=== PATIENT | female | born 1940 | race Caucasian/White ===

== ENCOUNTER 2018-04-07 09:52 | Emergency (ER) | payer OTHER ==
[2018-04-07 10:00] VITALS: BP 151/71; TEMP 97.1; BMI 19.4
--- NOTE | 2018-04-07 10:08 | ED.PDOC ---
General ED Provider: Dr. IMELDA BREWSTER Chief Complaint: Non-specific Complaint Stated Complaint: Mouth Sores. Pt complains of sores to lips and mouth, going down throat. States when this happened to her twin sister it was due to methotrexate toxicity. Both take methotrexate for rheumatoid arthritis. Patient was seen by Dr Roblero and was put on cefdinir. Time Seen by Physician: 10:05 Mode of Arrival: Walk-In Information Source: Patient, Family Exam Limitations: No limitations Primary Care Provider: KASH ROBLERO Nursing and Triage Documentation Reviewed and Agree: Yes Does patient meet sepsis criteria?: No System Inflammatory Response Syndrome: Not Applicable Sepsis Protocol: For patient's 13 years and over: Temp is 96.8 and below OR 101 and greater Pulse >90 BPM Resp >20/minute Acutely Altered Mental Status Are patient's symptoms suggestive of a new infection, such as: -Pneumonia -Skin, Soft Tissue -Endocarditis -UTI -Bone, Joint Infection -Implantable Device -Acute Abdominal Infection -Wound Infection -Meningitis -Blood Stream Catheter Infection -Unknown EENT Complaint Exam - Throat Complaint/Exam Onset/Duration: 48 hrs Symptoms Are: Still present Timimg: Constant Initial Severity: Moderate Current Severity: Moderate Aggravating: Reports: Eating Alleviating: Reports: None Associated Signs and Symptoms: Reports: Dysphagia, Foreign body sensation. Denies: Fever, Drooling, Chills, Cough, Wheezing, Hoarseness, Sinus discomfort, Nasal congestion, Difficulty breathing, Lethargy, Irritability, Decreased activity, Vomiting, Diarrhea, Decreased hearing, Ear drainage Uvula Midline: Yes Graciela-tonsillar Fluctuence: No Scarlatinaform Rash Present: No Lesions: Present: Lip, Gums. Absent: Tongue, Buccal Mucosa, Pharynx Exanthem: Absent: Lip, Gums, Tongue, Buccal Mucosa, Pharynx Vesicles: Absent: Lip, Gums, Tongue, Buccal Mucosa, Pharynx Stridor Present: No Sinus Tenderness Present: No Tonsillar Hypertrophy Present: No Tonsillar Exudate Present: No Graciela-tonsillar Swelling Present: No Adenopathy Present: No Splenomegaly Present: No Differential Diagnoses: Laryngitis, Pharyngitis, Other (Viral Infection vs med toxicity; ulcerative stomatitis) Review of Systems - Review Of Systems Constitutional: Reports: Malaise, Weakness, Loss of appetite Eyes: Reports: No symptoms Ears, Nose, Mouth, Throat: Reports: Mouth pain, Throat pain, Throat swelling. Denies: Ear pain, Ear discharge, Nose pain, Mouth swelling, Loose teeth Respiratory: Reports: No symptoms Cardiac: Reports: No symptoms GI: Reports: No symptoms : Reports: No symptoms Musculoskeletal: Reports: No symptoms Skin: Reports: No symptoms Neurological: Reports: No symptoms Endocrine: Reports: No symptoms Hematologic/Lymphatic: Reports: No symptoms All Other Systems: Reviewed and Negative Past Medical History - Past Medical History Endocrine: Reports: None Cardiovascular: Reports: Hypertension Respiratory: Reports: None Hematological: Reports: None Gastrointestinal: Reports: None Genitourinary: Reports: None Neuro/Psych: Reports: None Musculoskeletal: Reports: Arthritis Cancer: Reports: None Last Menstrual Period: NONE - Surgical History General Surgical History: Reports: None - Family History Family History: Reports: None - Social History Smoking Status: Never smoker Hx Substance Use: No Alcohol Screening: None Physical Exam - Physical Exam Appearance: Ill-appearing, Thin Ill-appearing: Mild Pain Distress: Mild Eyes: DERRICK, EOMI, Conjunctiva clear ENT: Ears normal, Nose normal, Oropharynx normal, Erythema (small ulcerations to the buccal mucosa of lips and gums. none to tongue of pharynx) Neck: Supple Respiratory: Airway patent, Breath sounds clear, Breath sounds equal, Respirations nonlabored Cardiovascular: RRR, Pulses normal, No rub, No murmur GI/: Soft, Nontender, No masses, Bowel sounds normal, No Organomegaly Musculoskeletal: Normal strength, ROM intact, No edema, No calf tenderness Skin: Warm, Dry, Normal color Neurological: Sensation intact, Motor intact, Reflexes intact, Cranial nerves intact, Alert, Oriented Psychiatric: Affect appropriate, Mood appropriate Critical Care Note - Critical Care Note Total Time (mins): 60 Course - Course Hematology/Chemistry: 04/07/18 10:23 04/07/18 10:23 Vital Signs: Temp Pulse Resp BP Pulse Ox 04/07/18 09:52 97.1 F L 67 18 151/71 H 94 L Departure - Departure Time of Disposition: 11:45 Disposition: HOME SELF-CARE Discharge Problem: Ulcerative stomatitis, Methotrexate, fdc, current use, Methotrexate adverse reaction Instructions: Gingivostomatitis (ED) Condition: Fair Pt referred to PMD for follow-up: Yes IPMP verified?: No Additional Instructions: Stop Methotrexate and contact Rhematologist to report problem Maintain good oral fluid intake Use Lidocaine viscous as directed Mylanta 15 ml orally 3-4 time daily Use other meds a s directed Allergies/Adverse Reactions: Allergies codeine Adverse Reaction (Verified 04/07/18 09:59) Nausea Home Medications: Ambulatory Orders Acyclovir 15 gm TP TID 04/07/18 Alendronate Sodium [Fosamax] 70 mg PO WEEKLY FOSAMAX 04/07/18 Amlodipine Besylate/Benazepril [Amlodipine-Benazepril 10-40 mg] 1 each PO DAILY 04/07/18 Aspirin [Aspirin Chewable] 81 mg PO DAILYWM 04/07/18 Cefdinir [Omnicef] 300 mg PO Q12HR 04/07/18 Cholecalciferol (Vitamin D3) [Vitamin D3] 2,000 unit PO DAILY 04/07/18 Desloratadine 5 mg PO DAILY 04/07/18 Diclofenac Sodium 75 mg PO BID 04/07/18 Estrogens,Conj/Bazedoxifene [Duavee 0.45-20 mg Tablet] 1 each PO DAILY 04/07/18 Ferrous Sulfate [Iron] 325 mg PO DAILY 04/07/18 Folic Acid 3 mg PO DAILY 04/07/18 Gabapentin [Neurontin] 300 mg PO TID 04/07/18 Hyoscyamine Sulfate [Hyoscyamine Sulfate ER] 0.375 mg PO DAILY PRN 04/07/18 Leflunomide [Arava] 10 mg PO EVERY OTHER DAY 04/07/18 Methotrexate Sodium [Methotrexate] 10 mg PO WEEKLY 04/07/18 Nebivolol HCl [Bystolic] 10 mg PO DAILY 04/07/18 Omeprazole 40 mg PO DAILY 04/07/18 Prednisone 1 mg PO BIDWM 04/07/18 Disposition Discussed With: Patient
[2018-04-07] MEDS: LIDOCAINE VISCOUS 2% 15 ML UD MUCOUSMEMB STA (10:27)
[2018-04-07] MEDS: MYLANTA SUSP PO STA (12:06)
== END 2018-04-07 12:56 | disposition home or self-care (01) ==
LOC: ED 09:52
DX: K12.31 Oral mucositis (ulcerative) due to antineoplastic therapy (principal); T45.1X5A Adverse effect of antineoplastic and immunosuppressive drugs, initial encounter; M06.9 Rheumatoid arthritis, unspecified; Z79.899 Other long term (current) drug therapy; I10 Essential (primary) hypertension
CPT/HCPCS: 36415; 80053; 85025; 85651; 99283

== ENCOUNTER 2023-12-13 00:59 | Inpatient (IN) ==
--- NOTE | 2023-12-13 01:34 | ED.PDOC ---
General ED Provider: Dr. MASSIEL MURILLO MD Chief Complaint: Fever Stated Complaint: 83 yo WF released from [facility] in [place], [place] this AM after 2 days stay for pneumonia. She was weak and collapsed at home, taken to [facility] and told she had a pneumonia. Discharged on PO antibiotic but started with a fever this afternoon and seem to be more confused and changing mental status . Daughter who brought her in said she was talking to a sister that wasn't there. Seem to be animated. 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 Lives with her . Denies any ZAYAS, chest pain but admit to slight SOB. Eating fair per family. No vomiting or diarrhea. No chest pain or abdominal pain. Time Seen by Provider: 12/13/23 01:11 Mode of Arrival: Walk-In Information Source: Patient Exam Limitations: Clinical condition and Dementia Primary Care Provider: KASH NARANJO Referred to ED by: Other (family) Seen Within Last 72 Hours for Same Complaint By: In-Patient Facility Nursing and Triage Documentation Reviewed and Agree: Yes What is Opioid Naive?: *Opioid Naive implies the patient is not already taking opioids or not chronically receiving opioids on a daily basis. *PRN dosing is not "usually" associated with tolerance. *Patients are at higher risk of over-sedation and aspiration. What is Opioid Tolerant?: *Opioid Tolerance implies less than the expected response to an opioid. *Acquired tolerance is defined by the patient taking 60mg of oral morphine daily (or equianalgesic dose of another opioid) for 1 week or more. *Often associated with chronic pain. *May take more than usual dose to achieve desired pain control. Review of Systems Review Of Systems Constitutional: Reports Fever and Weakness; Denies Diaphoresis Eyes: Reports No symptoms Ears, Nose, Mouth, Throat: Denies Ear pain or Throat pain Respiratory: Reports Cough and Shortness of Breath Cardiac: Denies Chest pain or Edema GI: Denies Abdominal pain, Diarrhea or Vomiting : Denies Dysuria or Hematuria Musculoskeletal: Reports Joint pain; Denies Joint swelling Skin: Reports No symptoms Neurological: Reports Other (Some worsening mental status); Denies Headache Physical Exam Physical Exam Appearance: Reports No pain distress and Well-nourished Ill-appearing: Mild Pain Distress: None Eyes: Reports DERRICK and EOMI ENT: Reports Ears normal, Nose normal and Oropharynx normal Neck: Supple Respiratory: Reports Airway patent, Breath sounds diminished and Rhonchi Cardiovascular: Reports RRR, Pulses normal, No rub and No murmur GI/: Reports No masses and Bowel sounds normal Musculoskeletal: Reports Normal strength, ROM intact, No calf tenderness and Other (significant ulnar deviation and classic joint deformity consistent with RA); Denies Limited strength or Edema Skin: Reports Warm, Dry and Normal color Neurological: Reports Sensation intact, Motor intact and Disoriented (to time, Oriented to person and place) Psychiatric: Reports Affect appropriate and Mood appropriate Interpretation Radiology Interpretation Radiology Interpretation By: Radiologist Radiology Results: Positive Exam Interpreted: CXR Xray Comments: LLL infiltrate Physician Notification Case Discussed Physician Notified: David Briceno Time of Notification: 03:46 Comments: Will admit to OBS Course Course 12/13/23 01:30 12/13/23 01:30 Orders, Labs, Meds: Lab Review 12/13/23 12/13/23 12/13/23 01:30 01:50 02:50 WBC 11.15 H RBC 3.30 L Hgb 10.0 L Hct 32.5 L MCV 98.5 MCH 30.3 MCHC 30.8 L RDW Coeff of Deborah 13.2 Plt Count 204 Immature Gran % (Auto) 0.4 Neut % (Auto) 80.7 H Lymph % (Auto) 6.7 L [place] % (Auto) 11.7 H Eos % (Auto) 0.1 Baso % (Auto) 0.4 Neut # (Auto) 9.0 H Lymph # (Auto) 0.8 [place] # (Auto) 1.3 Eos # (Auto) 0.0 Baso # (Auto) 0.0 Immature Gran # (Auto) 0.0 Sodium 133.7 L Potassium 3.97 Chloride 105.3 Carbon Dioxide 21.3 L Anion Gap 11.07 BUN 14.3 Creatinine 0.72 Estimated GFR (MDRD) 78.00 BUN/Creatinine Ratio 19.86 Glucose 101.9 Lactic Acid 1.06 Calcium 8.75 Total Bilirubin 0.49 AST 53.0 H ALT 33.5 Alkaline Phosphatase 44.7 L Total Protein 6.78 Albumin 3.81 Globulin 2.97 Albumin/Globulin Ratio 1.28 Procalcitonin 2.77 H Urine Color Yellow Urine Clarity Clear Urine pH 7.0 Ur Specific Center 1.025 Urine Protein 2+ H Urine Glucose (UA) Trace H Urine Ketones Negative Urine Blood Trace-lysed Urine Nitrite Negative Urine Bilirubin Negative Urine Urobilinogen 1.0 H Ur Leukocyte Esterase Negative Urine Microscopic RBC 2-5 Urine Microscopic WBC 0-2 Ur Squamous Epith Cells 0-2 Urine Bacteria Trace SARS CoV-2 RNA Rapid LYNNETTE Negative Orders Category Date Time Status Saline Lock [ED IV/MEDIPORT/POWERPORT] .ONCE EMERGENCY 12/13/23 01:22 Active BLOOD CULTURE (ED ONLY) Stat LAB 12/13/23 01:30 Received CBC W/ AUTO DIFF Stat LAB 12/13/23 01:30 Completed CMP [COMPREHENSIVE METABOLIC PANEL] Stat LAB 12/13/23 01:30 Completed COVID [SARS COV-2 RNA RAPID LYNNETTE] Stat LAB 12/13/23 02:50 Completed LACTIC ACID Stat LAB 12/13/23 01:30 Completed PROCALCITONIN Stat LAB 12/13/23 01:30 Completed URINALYSIS C & S IF INDICATED Stat LAB 12/13/23 01:50 Completed 0.9 % Sodium Chloride [Saline Flush] Meds 12/13/23 01:22 Active 1 syr IVF PRN PRN Acetaminophen [Tylenol] Meds 12/13/23 01:33 Discontinued 500 mg PO ONCE ONE Ceftriaxone 1 gm Vial [Rocephin 1 gm Vial] Meds 12/13/23 03:37 Discontinued 1 gm IVP ONCE ONE Ringers Lactated Solution [Lactated Ringers] 1,000 ml Meds 12/13/23 01:22 Active IV 250 mls/hr CHEST, 1V AP ONLY Stat RADS 12/13/23 01:22 Completed Medications Generic Name Dose Route Start Last Admin Trade Name Freq PRN Reason Stop Dose Admin Lactated Ringer's 1,000 mls @ 250 mls/hr 12/13/23 01:22 12/13/23 01:40 Lactated Ringers IV 12/13/23 05:21 250 mls/hr .Q4H ONE Administration Sodium Chloride 1 syr 12/13/23 01:22 0.9% Sodium Chloride 10 Ml Disp.Syrin IVF PRN PRN To flush IV Discontinued Medications Generic Name Dose Route Start Last Admin Trade Name Freq PRN Reason Stop Dose Admin Acetaminophen 500 mg 12/13/23 01:33 12/13/23 01:39 Acetaminophen 500 Mg Tablet PO 12/13/23 01:34 500 mg ONCE ONE Administration Ceftriaxone Sodium 1 gm 12/13/23 03:37 Ceftriaxone 1 Gm Vial IVP 12/13/23 03:38 ONCE ONE Vital Signs: Temp Pulse Resp BP Pulse Ox 12/13/23 02:36 52 L 17 114/54 L 92 L 12/13/23 01:02 101.7 F H 92 16 119/71 93 L Discharge Plan Discharge Patient Disposition: PLACED OBSERVATION Discharge Problem: Community acquired pneumonia Qualifiers: Laterality: left Lung location: lower lobe of lung Qualified Code(s): J18.9 - Pneumonia, unspecified organism Did you review [place] [facility] for ALL controlled substances?: Not Applicable ED Provider: MASSIEL MURILLO Condition: Fair Physician Progress Note: Daug[place]er said patient still talking out of her head. Records from [facility] reviewed and initial WBC was 20K that dropped to 12K on discharge on AM of December 11. She was on Rocephin and Zithromax. She did have CTA to confirmed mostly LLL and some lingular infiltrate
[2023-12-13 01:38] LABS: BASOPHILS % (AUTO) 0.4 % (0.0-3.0); EOSINOPHILS % (AUTO) 0.1 % (0.0-7.0); HEMATOCRIT 32.5 % (37.0-47.0); IMMATURE GRANULOCYTE % (AUTO) 0.4 % (0.0-5.0); LYMPHOCYTES # (AUTO) 0.8 K/uL (0.60-3.4); LYMPHOCYTES % (AUTO) 6.7 (10.0-50.0); MEAN CORPUSCULAR HEMOGLOBIN 30.3 pg (27.0-31.0); MEAN CORPUSCULAR HGB CONC 30.8 (31.8-35.4); MEAN CORPUSCULAR VOLUME 98.5 fl (81.0-99.0); MONOCYTES # (AUTO) 1.3 K/uL (0.4-2.0); MONOCYTES % (AUTO) 11.7 (0-10); NEUTROPHILS % (AUTO) 80.7 % (42.2-75.2); PLATELET COUNT 204 10^3/uL (140-440); RDW COEFFICIENT OF VARIATION 13.2 % (11.6-14.8); WHITE BLOOD COUNT 11.15 K/ul (4.6-10.2)
[2023-12-13] MEDS: TYLENOL PO ONE (01:39)
[2023-12-13] MEDS: LACTATED RINGERS 1,000 ML IV ONE (01:40)
[2023-12-13 01:54] LABS: BILIRUBIN,URINE Negative (NEGATIVE); CLARITY,URINE Clear (CLEAR); COLOR,URINE Yellow (YELLOW); GLUCOSE, URINE (UA) Trace (NEGATIVE); KETONES,URINE Negative (NEGATIVE); LEUKOCYTE ESTERASE ,URINE Negative (NEGATIVE); NITRITE,URINE Negative (NEGATIVE); PROTEIN,URINE 2+ (NEGATIVE); URINE, BLOOD Trace-lysed (NEGATIVE)
[2023-12-13 01:56] LABS: ALANINE AMINOTRANSFERASE 33.5 U/L (0-35); ALBUMIN 3.81 g/dL (3.5-5.0); ALKALINE PHOSPHATASE 44.7 U/L (53-141); BILIRUBIN,TOTAL 0.49 mg/dL (0.2-1.3); BLOOD UREA NITROGEN 14.3 mg/dL (7-17); CALCIUM 8.75 mg/dL (8.4-10.2); CARBON DIOXIDE 21.3 mmol/L (22-30.0); CHLORIDE 105.3 mmol/L (98-107); CREATININE 0.72 mg/dL (0.60-1.30); GLUCOSE 101.9 mg/dL (74-106); POTASSIUM 3.97 mmol/L (3.5-5.1); SODIUM 133.7 mmol/L (134.5-145); TOTAL PROTEIN 6.78 g/dL (6.3-8.2)
[2023-12-13 01:57] LABS: BACTERIA,URINE TRACE (NOT PRESENT); SQUAMOUS EPITHELIAL CELL,UR 0-2 (0-5); URINE WBC, MICROSCOPIC 0-2 (0-2)
--- NOTE | 2023-12-13 02:44 | DI ---
HISTORY: FEVER AND PNEUMONIA. Comparison: None. FINDINGS: The bones are unremarkable. The cardiac silhouette is enlarged. The pulmonary vasculatur e is within normal limits. The right costophrenic angle is clear. There is a small left pleural eff usion. There are left lower lobe airspace opacities, consistent with pneumonia. There are calcified granulomas. Impression: Left lower lobe pneumonia. Small left pleural effusion. Cardiomegaly.
[2023-12-13 03:06] LABS: SARS COV-2 RNA RAPID NAAT NEGATIVE (NEGATIVE)
[2023-12-13] MEDS: ROCEPHIN 1 GM VIAL IVP ONE (03:50)
[2023-12-13 04:34] VITALS: BMI 15.3
[2023-12-13] MEDS: NORVASC PO SCH (08:24)
[2023-12-13] MEDS: LOTENSIN PO SCH (08:24)
[2023-12-13] MEDS: PRILOSEC PO SCH ×2 (08:24→08:36)
[2023-12-13] MEDS: ASPIRIN CHEWABLE PO SCH (08:24)
[2023-12-13] MEDS: ZITHROMAX 500 MG in SODIUM CHLORIDE 250 ML IV SCH (08:25)
[2023-12-13 08:29] LABS: BASOPHILS % (AUTO) 0.5 % (0.0-3.0); EOSINOPHILS # (AUTO) 0.2 K/ul (0.0-0.7); EOSINOPHILS % (AUTO) 2.2 % (0.0-7.0); HEMATOCRIT 30.6 % (37.0-47.0); HEMOGLOBIN 9.5 g/dl (12.0-16.0); IMMATURE GRANULOCYTE % (AUTO) 0.4 % (0.0-5.0); LYMPHOCYTES # (AUTO) 0.8 K/uL (0.60-3.4); LYMPHOCYTES % (AUTO) 9.7 (10.0-50.0); MEAN CORPUSCULAR HEMOGLOBIN 30.2 pg (27.0-31.0); MEAN CORPUSCULAR VOLUME 97.1 fl (81.0-99.0); MONOCYTES # (AUTO) 1.2 K/uL (0.4-2.0); MONOCYTES % (AUTO) 14.4 (0-10); NEUTROPHILS # (AUTO) 5.9 K/ul (2.0-6.9); NEUTROPHILS % (AUTO) 72.8 % (42.2-75.2); PLATELET COUNT 182 10^3/uL (140-440); RDW COEFFICIENT OF VARIATION 13.1 % (11.6-14.8); RED BLOOD COUNT 3.15 10^6/ul (4.20-5.40); WHITE BLOOD COUNT 8.14 K/ul (4.6-10.2)
[2023-12-13] MEDS: TICAGRELOR 90 MG PO SCH (08:36)
[2023-12-13 08:42] LABS: ALANINE AMINOTRANSFERASE 27.4 U/L (0-35); ALBUMIN 3.15 g/dL (3.5-5.0); ALKALINE PHOSPHATASE 38.9 U/L (53-141); ASPARTATE AMINO TRANSFERASE 44.3 U/L (14-36); BILIRUBIN,TOTAL 0.28 mg/dL (0.2-1.3); BLOOD UREA NITROGEN 13.3 mg/dL (7-17); CALCIUM 8.34 mg/dL (8.4-10.2); CARBON DIOXIDE 26.2 mmol/L (22-30.0); CHLORIDE 107.4 mmol/L (98-107); CREATININE 0.74 mg/dL (0.60-1.30); GLUCOSE 91.7 mg/dL (74-106); POTASSIUM 4.24 mmol/L (3.5-5.1); SODIUM 135.5 mmol/L (134.5-145); TOTAL PROTEIN 5.92 g/dL (6.3-8.2)
[2023-12-13] MEDS: PREDNISONE PO SCH (08:49)
[2023-12-13] MEDS: DUONEB NEB SCH (09:19)
--- NOTE | 2023-12-13 10:38 | PCM ---
Date of Service Date Seen by Provider: 12/13/23 Time Seen by Provider: 08:45 Admit Day/Time Admission Date: 12/13/23 Admission Time: 04:00 Reason for Admission Chief Complaint: PNEUMONIA Hospital Provider Hospital Provider: ELIZABETH KAISER, [facility] [place] Primary Care Physician Primary Care Physician: KASH NARANJO History of Present Illness History of Present Illness: 83 yo female with pmh of HTN, hyperlipidemia, anemia, CKD3, and RA presented to the ER with altered mental status and fever. Patient is disoriented to place, time, and situation currently. Daughter at bedside to provide HPI. Reports patient began not feeling well on Monday and was taken to [facility]. She was found to have L lower lobe pneumonia and admitted from the to the . She was discharged around 11 yesterday and then continued to decline as they got home. Became very short of breath on exertion, fever over 100, and became confused. White count at [facility] was initially 22 and decreased to 12 by discharge. She was requiring 2L NC oxygen and was weaned to RA. Blood cultures completed and negative. Strep pneumo, legionella, and sputum were ordered but not collected during stay. She received azithromycin and rocephin then discharged home on cefdinir in which she only took 1 dose prior to returning to the ER. Initial temp in ER was 101.7, O2 sat was dropping down into upper 80s and was pl aced on 2L. Pneumonia still present on x-ray to LLL. White count 11.5. Blood cultures were collected. Given doses of azith and rocephin. Patient continues to be confused. Daughter reports agitation at times as well. Admit to med/surg inpatient due to failure at home. Case Discussed With Case Discussed With: Patient's case was discussed with the ER Physicians, Dr. Aguirre [facility] Medical History (Updated 12/13/23 @ 10:52 by ELIZABETH KAISER) Chronic kidney disease, stage 3 N18.30 - Chronic kidney disease, stage 3 unspecified (ICD-10) Anemia D64.9 - Anemia, unspecified (ICD-10) Rheumatoid arthritis M06.9 - Rheumatoid arthritis, unspecified (ICD-10) Hyperlipidemia E78.5 - Hyperlipidemia, unspecified (ICD-10) Hypertension I10 - Essential (primary) hypertension (ICD-10) Surgical History Total knee replacement status Z96.659 - Presence of unspecified artificial knee joint (ICD-10) Previous back surgery Z98.890 - Other specified postprocedural states (ICD-10) H/O heart artery stent Z95.5 - Presence of coronary angioplasty implant and graft (ICD-10) Family History Other No known health problems Social History Smoking and tobacco status: Never smoker Allergies Allergies Allergy/AdvReac Type Severity Reaction Status Date / Time codeine AdvReac Nausea Verified 12/13/23 01:06 Current Medications Home Medications aspirin 81 mg chewable tablet 81 mg PO DAILYWM 04/07/18 [History Confirmed 12/13/23 Last Taken 12/12/23] cefdinir 300 mg capsule 300 mg PO Q12HR 04/07/18 [History Confirmed 12/13/23 Last Taken 12/12/23] prednisone 1 mg tablet 3 mg PO DAILY 04/07/18 [History Confirmed 12/13/23 Last Taken 12/12/23] amitriptyline 25 mg tablet 25 mg PO BEDTIME 12/13/23 [History Confirmed 12/13/23 Last Taken 12/12/23] amlodipine 5 mg-benazepril 40 mg capsule 1 cap PO DAILY 12/13/23 [History Confirmed 12/13/23 Last Taken 12/12/23] atorvastatin 40 mg tablet 40 mg PO QPM 12/13/23 [History Confirmed 12/13/23 Last Taken 12/12/23] certolizumab pegol 400 mg/2 mL (200 mg/mL x2) subcutaneous syringe kit (Cimzia) 400 mg subcut ONCE 12/13/23 [History Confirmed 12/13/23 Last Taken Unknown] hydrochlorothiazide 12.5 mg tablet 12.5 mg PO DAILY 12/13/23 [History Confirmed 12/13/23 Last Taken 12/12/23] nebivolol 5 mg tablet (Bystolic) 5 mg PO DAILY 12/13/23 [History Confirmed 12/13/23 Last Taken 12/12/23] prednisone 1 mg tablet 2 mg PO BEDTIME 12/13/23 [History Confirmed 12/13/23 Last Taken Unknown] tramadol 50 mg tablet 50 mg PO Q6H PRN pain 12/13/23 [History Confirmed 12/13/23 Last Taken 12/12/23] Home Acetaminophen (Acetaminophen 500 Mg Tablet) 500 mg PO Q6H PRN PRN Reason: FEVER/PAIN Albuterol/Ipratropium (Ipratropium/Albuterol Vial.Neb) 3 ml NEB RTQ4H [facility] Last Admin: 12/13/23 09:19 Dose: 3 ml Amitriptyline HCl (Amitriptyline Hcl 25 Mg Tablet) 25 mg PO BEDTIME [facility] Amlodipine Besylate (Amlodipine Besylate 5 Mg Tablet) 5 mg PO DAILY [facility] Last Admin: 12/13/23 08:24 Dose: 5 mg Aspirin (Aspirin 81 Mg Tab.Chew) 81 mg PO DAILYWM2 [facility] Last Admin: 12/13/23 08:24 Dose: 81 mg Atorvastatin Calcium (Atorvastatin Calcium 20 Mg Tablet) 40 mg PO QPM [facility] Benazepril HCl (Benazepril Hcl 10 Mg Tablet) 40 mg PO DAILY [facility] Last Admin: 12/13/23 08:24 Dose: 40 mg CEFTRIAXONE/D5W 1 GM PREMIX (Rocephin 1 Gm/50 Ml D5w) 1 gm in 50 mls @ 100 mls/hr IV DAILY [facility] Stop: 12/17/23 08:59 Azithromycin 500 mg/ Sodium (Chloride) 250 mls @ 250 mls/hr IV DAILY [facility] Stop: 12/16/23 08:59 Last Admin: 12/13/23 08:25 Dose: 250 mls/hr Omeprazole (Omeprazole 20 Mg Capsule.Dr) 40 mg PO QDAC2 [facility] Last Admin: 12/13/23 08:36 Dose: 40 mg Sodium Chloride (0.9% Sodium Chloride 10 Ml Disp.Syrin) 1 syr IVF PRN PRN PRN Reason: To flush IV Discontinued Medications Acetaminophen (Acetaminophen 500 Mg Tablet) 500 mg PO ONCE ONE Stop: 12/13/23 01:34 Last Admin: 12/13/23 01:39 Dose: 500 mg Ceftriaxone Sodium (Ceftriaxone 1 Gm Vial) 1 gm IVP ONCE ONE Stop: 12/13/23 03:38 Last Admin: 12/13/23 03:50 Dose: 1 gm Lactated Ringer's (Lactated Ringers) 1,000 mls @ 250 mls/hr IV .Q4H ONE Stop: 12/13/23 05:21 Last Infusion: 12/13/23 05:38 Dose: Infused Non-Formulary Medication (Ticagrelor) 90 mg PO BID [facility] Last Admin: 12/13/23 08:36 Dose: Not Given Non-Formulary Medication (Amlodipine-Benazepril) 1 cap PO DAILY [facility] Omeprazole (Omeprazole 20 Mg Capsule.Dr) 40 mg PO DAILY [facility] Last Admin: 12/13/23 08:24 Dose: 40 mg Prednisone (Prednisone 1 Mg Tablet) 3 mg PO DAILYWM2 [facility] Last Admin: 12/13/23 08:49 Dose: 3 mg Opioid Naive vs. Tolerant Does Patient Take Opioids?: No Is Patient Opioid Naive?: Yes What is Opioid Naive?: *Opioid Naive implies the patient is not already taking opioids or not chron ically receiving opioids on a daily basis. *PRN dosing is not "usually" associated with tolerance. *Patients are at higher risk of over-sedation and aspiration. Is Patient Opioid Tolerant?: No What is Opioid Tolerant?: *Opioid Tolerance implies less than the expected response to an opioid. *Acquired tolerance is defined by the patient taking 60mg of oral morphine daily (or equianalgesic dose of another opioid) for 1 week or more. *Often associated with chronic pain. *May take more than usual dose to achieve desired pain control. Review of Systems Constitutional: Reports Fever Eyes: Reports No symptoms Ears: Reports No symptoms Nose: Reports No symptoms Mouth: Reports No symptoms Throat: Reports No symptoms Cardiovascular: Reports No symptoms Respiratory: Reports Shortness of air Gastrointestinal: Reports No symptoms Genitourinary: Reports No Symptoms Musculoskeletal: Reports No symptoms Endocrine: Reports No symptoms Hematology: Reports No symptoms Neurological: Reports Other (Confusion) Psychiatric: Reports No symptoms Physical examination Most Recent Vital Signs: Most Recent Vital Signs Temperature 98.6 F 12/13/23 10:00 Temperature Source Temporal Artery Scan 12/13/23 10:00 Temperature Source Temporal Artery Scan 12/13/23 03:55 Pulse Rate 90 12/13/23 10:00 Respiratory Rate 16 12/13/23 10:00 Blood Pressure 116/58 L 12/13/23 10:00 Blood Pressure Mean 77 12/13/23 10:00 Blood Pressure Left Arm 139/74 12/13/23 04:17 Blood Pressure Location Left Arm 12/13/23 10:00 Blood Pressure Position Supine 12/13/23 10:00 O2 Sat by Pulse Oximetry 95 12/13/23 10:00 Oxygen Delivery Method Nasal Cannula 12/13/23 10:00 Oxygen Flow Rate 2 12/13/23 10:00 Height 4 ft 11 in 12/13/23 04:17 Weight 34.4 kg 12/13/23 04:17 Telemetry Type Remote Telemetry 12/13/23 07:00 Telemetry Monitoring Continues 12/13/23 07:00 Telemetry Heart Rate 76 12/13/23 07:00 EKG OR Interval 0.14 12/13/23 07:00 EKG QRS Interval 0.06 12/13/23 07:00 Telemetry Strip Reading SR 12/13/23 07:00 Appearance: Positive No Apparent Distress and Thin Skin: Positive Warm and Good Turgor HEENT: Positive Normocephalic and PERRLA Neck: Positive Supple and Midline Trachea Chest/Lungs: Positive Symmetrical With Equal Breath Sounds, Rhonci (throughout left lung) and Other (right lung clear throughout) Heart: Positive RRR and Pulses Normal GI/: Positive Soft, Nontender, Bowel Sounds Normal and No Distention Musculoskeletal: Positive Not Examined Extremities: Positive Intact Peripheral Pulses, Stable Joints Without Laxity and Good ROM in All Joints Neurological: Positive Sensation Intact, Motor intact, Alert, Oriented (person, month ) and Disorinted (year, place, situation) Labs This Visit Labs This Visit: Labs This Visit 12/13/23 12/13/23 12/13/23 01:30 01:50 02:50 WBC 11.15 H RBC 3.30 L Hgb 10.0 L Hct 32.5 L MCV 98.5 MCH 30.3 MCHC 30.8 L RDW Coeff of Deborah 13.2 Plt Count 204 Immature Gran % (Auto) 0.4 Neut % (Auto) 80.7 H Lymph % (Auto) 6.7 L [place] % (Auto) 11.7 H Eos % (Auto) 0.1 Baso % (Auto) 0.4 Neut # (Auto) 9.0 H Lymph # (Auto) 0.8 [place] # (Auto) 1.3 Eos # (Auto) 0.0 Baso # (Auto) 0.0 Immature Gran # (Auto) 0.0 Sodium 133.7 L Potassium 3.97 Chloride 105.3 Carbon Dioxide 21.3 L Anion Gap 11.07 BUN 14.3 Creatinine 0.72 Estimated GFR (MDRD) 78.00 BUN/Creatinine Ratio 19.86 Glucose 101.9 Lactic Acid 1.06 Calcium 8.75 Total Bilirubin 0.49 AST 53.0 H ALT 33.5 Alkaline Phosphatase 44.7 L Total Protein 6.78 Albumin 3.81 Globulin 2.97 Albumin/Globulin Ratio 1.28 Procalcitonin 2.77 H Urine Color Yellow Urine Clarity Clear Urine pH 7.0 Ur Specific Henderson 1.025 Urine Protein 2+ H Urine Glucose (UA) Trace H Urine Ketones Negative Urine Blood Trace-lysed Urine Nitrite Negative Urine Bilirubin Negative Urine Urobilinogen 1.0 H Ur Leukocyte Esterase Negative Urine Microscopic RBC 2-5 Urine Microscopic WBC 0-2 Ur Squamous Epith Cells 0-2 Urine Bacteria Trace SARS CoV-2 RNA Rapid LYNNETTE Negative 12/13/23 08:24 WBC 8.14 RBC 3.15 L Hgb 9.5 L Hct 30.6 L MCV 97.1 MCH 30.2 MCHC 31.0 L RDW Coeff of Deborah 13.1 Plt Count 182 Immature Gran % (Auto) 0.4 Neut % (Auto) 72.8 Lymph % (Auto) 9.7 L [place] % (Auto) 14.4 H Eos % (Auto) 2.2 Baso % (Auto) 0.5 Neut # (Auto) 5.9 Lymph # (Auto) 0.8 [place] # (Auto) 1.2 Eos # (Auto) 0.2 Baso # (Auto) 0.0 Immature Gran # (Auto) 0.0 Sodium 135.5 Potassium 4.24 Chloride 107.4 H Carbon Dioxide 26.2 Anion Gap 6.14 BUN 13.3 Creatinine 0.74 Estimated GFR (MDRD) 75.00 BUN/Creatinine Ratio 17.97 Glucose 91.7 Lactic Acid Calcium 8.34 L Total Bilirubin 0.28 AST 44.3 H ALT 27.4 Alkaline Phosphatase 38.9 L Total Protein 5.92 L Albumin 3.15 L Globulin 2.77 Albumin/Globulin Ratio 1.13 Procalcitonin Urine Color Urine Clarity Urine pH Ur Specific Henderson Urine Protein Urine Glucose (UA) Urine Ketones Urine Blood Urine Nitrite Urine Bilirubin Urine Urobilinogen Ur Leukocyte Esterase Urine Microscopic RBC Urine Microscopic WBC Ur Squamous Epith Cells Urine Bacteria SARS CoV-2 RNA Rapid LYNNETTE Imaging Imaging: Procedure(s): CHEST, 1V AP ONLY FINDINGS: The bones are unremarkable. The cardiac silhouette is enlarged. The pulmonary vasculature is within normal limits. The right costophrenic angle is clear. There is a small left pleural effusion. There are left lower lobe airspace opacities, consistent with pneumonia. There are calcified granulomas. Impression: Left lower lobe pneumonia. Small left pleural effusion. Cardiomegaly. Review Statement Review Statement: I have independently reviewed and interpreted the labs/EKGs/imaging that were ordered by the ER provider. I have reviewed all outside records that are available currently in our EMR including imaging/notes/labs from previous visits. Plan Plan: 1. Acute Hypoxic Respiratory Failure in setting of CAP - wean oxygen as tolerated, nebs 2. CAP - failed at home, restarted azith and rocephin, nebs, holding steroids per daughter request, sputum, MRSA, legionella, and strep pneumo ordered 3. Acute Metabolic Encephalopathy secondary to CAP - avoid neurologically altering agents, monitor for worsening 4. Acute Transaminitis - liver enzymes and alk phos mildly elevated, likely due to #2, trend and monitor 5. Hypertension - chronic, continue home medications 6. Hyperlipidemia - chronic, continue home medications 7. Weakness due to above - PT/OT to eval and treat DVT Prophylaxis: Ambulation Time Spent: Greater than 80 minutes spent with patient, 50% of the time spent with this patient was devoted to counseling and coordination of care. Advanced Care Plannin minutes spent discussing advance care planning. Disposition: Admit to: Med/surg Inpatient Full Code Discussed Plan of Care with Dr. Duke Coley. Medications Medication Orders: Medications Ordered Category Date Time Status 0.9 % Sodium Chloride [Saline Flush] Meds 12/13/23 01:22 Active 1 syr IVF PRN PRN Acetaminophen [Tylenol] Meds 12/13/23 04:03 Active 500 mg PO Q6H PRN Amitriptyline HCl [Elavil] Meds 12/13/23 21:00 Active 25 mg PO BEDTIME Amlodipine Besylate [Norvasc] Meds 12/13/23 09:00 Active 5 mg PO DAILY Aspirin [Aspirin Chewable] Meds 12/13/23 07:30 Active 81 mg PO DAILYWM2 Atorvastatin Calcium [Lipitor] Meds 12/13/23 17:00 Active 40 mg PO QPM Azithromycin Inj [Zithromax] 500 mg Meds 12/13/23 09:00 Active 0.9 % Sodium Chloride [Sodium Chloride] 250 ml IV DAILY Benazepril HCl [Lotensin] Meds 12/13/23 09:00 Active 40 mg PO DAILY Ceftriaxone/D5w 1 gm Premix [Rocephin 1 gm/50 ml D5w] Meds 12/14/23 09:00 Active 1 gm in 50 ml IV DAILY Ipratropium/Albuterol Neb [Duoneb] Meds 12/13/23 10:00 Active 3 ml NEB RTQ4H Omeprazole [Prilosec] Meds 12/13/23 09:00 Active 40 mg PO QDAC2
[2023-12-13] MEDS: TYLENOL PO PRN (14:13)
[2023-12-13] MEDS: LEVAQUIN 750 MG/150 ML D5W 750 MG/150 ML BAG IV SCH (14:24)
--- NOTE | 2023-12-13 15:20 | RS.PTINEVL ---
Subjective Patient information Date of Evaluation: 12/13/23 Date of Arrival on Unit: 12/13/23 Admitted From:: Home Diagnosis: pneumonia, confusion, impaired balance, gait difficulty Usual Living Arrangement: With Spouse Living Arrangement Comments: Patient lives at home with spouse. Home Environment: House and Stairs (few) Medical History: Hypertension and Arthritis (rheumatoid) Medical History Comments:: CKI, PA LATEX ALLERGY?: No Surgical History Comments:: coronary stent Medications: see chart, pt on O2 per nasal cannula Subjective Information/ Patient Comments:: pt states that she wants to take a shower because she is sweaty from fever. Notified nursing. Daughter reports pt has been wanting to get up and walk. Level of function Prior to this admission, the patient could do the following:: Independent Selfcare, Independent ADL's and Independent Ambulation Abilities prior to this admission: pt occasionally used cane or rwx however did not use in the home. Current Level of Function: Partially Dependent Current Equipment Used at Home: rolling walker, Cane. Interventions Objective Patient Orientation: Person and Place Current Interventions: IV's, Oxygen and Telemetry Observation: pt impulsive pt with arthritic deformities B hands Range of Motion ROM Right Upper Extremity AROM: WFL's Left Upper Extremity AROM: WFL's Right Lower Extremity AROM: WFL's Left Lower Extremity AROM: WFL's Muscle Strength Muscle Strength Right Upper Extremity: Mild Weakness (grossly 4/5) Left Upper Extremity: Mild Weakness (grossly 4/5) Right Lower Extremity: Mild Weakness (hip flex 4/5, knee flex/ext 4/5, ankle DF/PF 4+/5) Left Lower Extremity: Mild Weakness (hip flex 4/5, knee flex/ext 4/5, ankle DF/PF 4+/5) Sensation Sensation Right Upper Extremity: Intact/Normal Left Upper Extremity: Intact/Normal Right Lower Extremity: Intact/Normal Left Lower Extremity: Intact/Normal Palpation Palpation Findings: None/Normal Balance Sitting Balance and Reactions Static Sitting Balance: Fair Dynamic Sitting Balance: Poor Standing Balance and Reactions Static Standing Balance: Poor Dynamic Standing Balance: Poor Standing Equilibrium Reactions: Delayed Left and Delayed Right Standing Protective Reactions: Delayed Left and Delayed Right Comments Balance Assessment Comments: pt is impulsive requires cues to sit for a moment prior to standing and to stand prior to beginning ambulation. Functional Mobility Bed Mobility Rolling R/L: CGA Supine to Sit: CGA Sit to Supine: CGA Transfers Sit to Stand: CGA Stand to Sit: CGA and Min Assist Safety Awareness Safety Awareness: Poor DAVI INDEX SCORE: n/a Ambulation Ambulation Assistive Device Used: Rolling Walker Orthotic/Prosthetic Device: No Distance: 20ft Assistance needed with Ambulation: Min Assist and 1 person assist Quality of Ambulation: pt requires assist with guiding rwx and to remain on path, cues for step length Gait Deviations: Forward posture, Short stride and Deviates from path Factors Affecting Ambulation: Decreased Balance, Weakness, Decreased Coordination, Decreased Safety, Cognitive Status and Limited Endurance Treatment time Units charged Gait trainin Time with patient Length of Evaluation: 18 Total treatment time: 27 Patient Education Education Patient Education: Activity Modification and Education of Plan of Care Teaching Recipient: Patient Teaching Methods: Discussion Comments: discussion regarding safety with transfers and gait. Assessment Assessment Problem List:: Decreased level of function, Requires training/education, Decreased safety/Risk of falls, Weakness, Pain limits previous level of function and Cognitive status limits abilities Rehab Potential: Fair Further Therapy Indicated?: Yes Candidate for Swing Bed for Therapy Services?: Feel pt may be a candidate for swing bed if cognitive status improves. Evaluation Complexity: HISTORY: Medium, EXAM OF BODY SYSTEMS: Medium, CLINICAL PRESENTATION: Medium and CLINICAL DECISION MAKING: Medium Patient's Goal(s): pt wants to go home. Short Term Goals GOAL #1: pt demonstrate rolling and scooting in bed independently. Goal to be met by: 12/15/23 GOAL #2: Transfer sup to/from sit SBA Goal to be met by: 12/15/23 GOAL #3: Transfer sit to/from stand CGA to SBA Goal to be met by: 12/15/23 GOAL #4: pt amb with AAD 100ft with O2 with CGA x 1 Goal to be met by: 12/15/23 GOAL #5: Improve BLE strength 4+/5 Goal to be met by: 12/15/23 Senior Living Goals GOAL #1: Transfer sup to/from sit to/from stand independently. Goal to be met by: 12/19/23 GOAL #2: pt amb with rwx functional household distances SBA Goal to be met by: 12/19/23 GOAL #3: Improve dyn stand balance fair Goal to be met by: 12/19/23 Plan Plan of Care: Therapeutic EX and Therapeutic Activity Other:: gait training Frequency of Treatment: 1-2 X day, as tolerated Duration of Treatment: 5 days Anticipated Discharge Destination: Home Treatment Diagnosis (ICD 10 Codes): difficulty walking R 26.2 balance impaired R 26.81 weakness M62.81 Has the Physician been added for Co-signature?: Yes
[2023-12-13] MEDS: LIPITOR PO SCH (18:01)
[2023-12-13] MEDS: BENADRYL PO ONE (20:34)
[2023-12-13] MEDS: ELAVIL PO SCH (20:35)
[2023-12-13] MEDS ORDERED: PREDNISONE PO SCH (21:00)
[2023-12-13] MEDS: XANAX PO ONE (23:59)
[2023-12-14 05:15] LABS: BASOPHILS % (AUTO) 0.4 % (0.0-3.0); EOSINOPHILS # (AUTO) 0.2 K/ul (0.0-0.7); EOSINOPHILS % (AUTO) 1.4 % (0.0-7.0); HEMATOCRIT 31.5 % (37.0-47.0); HEMOGLOBIN 10.1 g/dl (12.0-16.0); IMMATURE GRANULOCYTE # (AUTO) 0.1 (0.0-1.0); IMMATURE GRANULOCYTE % (AUTO) 0.6 % (0.0-5.0); LYMPHOCYTES # (AUTO) 0.9 K/uL (0.60-3.4); LYMPHOCYTES % (AUTO) 8.4 (10.0-50.0); MEAN CORPUSCULAR HEMOGLOBIN 30.1 pg (27.0-31.0); MEAN CORPUSCULAR HGB CONC 32.1 (31.8-35.4); MONOCYTES # (AUTO) 1.4 K/uL (0.4-2.0); MONOCYTES % (AUTO) 12.5 (0-10); NEUTROPHILS # (AUTO) 8.3 K/ul (2.0-6.9); NEUTROPHILS % (AUTO) 76.7 % (42.2-75.2); PLATELET COUNT 215 10^3/uL (140-440); RED BLOOD COUNT 3.35 10^6/ul (4.20-5.40); WHITE BLOOD COUNT 10.85 K/ul (4.6-10.2)
[2023-12-14 05:28] LABS: ALANINE AMINOTRANSFERASE 26.1 U/L (0-35); ALBUMIN 3.29 g/dL (3.5-5.0); ASPARTATE AMINO TRANSFERASE 37.4 U/L (14-36); BILIRUBIN,TOTAL 0.47 mg/dL (0.2-1.3); BLOOD UREA NITROGEN 10.8 mg/dL (7-17); CALCIUM 8.52 mg/dL (8.4-10.2); CARBON DIOXIDE 24.9 mmol/L (22-30.0); CREATININE 0.69 mg/dL (0.60-1.30); GLUCOSE 94.7 mg/dL (74-106); POTASSIUM 3.36 mmol/L (3.5-5.1); SODIUM 134.3 mmol/L (134.5-145); TOTAL PROTEIN 6.34 g/dL (6.3-8.2)
[2023-12-14] MEDS: K-DUR PO ONE (08:40)
[2023-12-14] MEDS ORDERED: ROCEPHIN 1 GM/50 ML D5W 1 GM/50 ML BAG IV SCH (09:00)
--- NOTE | 2023-12-14 09:38 | PCM.PROG ---
Date/Time Seen Date Seen by Provider: 12/14/23 Time Seen by Provider: 08:30 Provider Provider: ELIZABETH KAISER, [facility] [place] Chief Complaint Chief Complaint: PNEUMONIA Subjective Subjective: On 1L this am. Still running fever. Very confused throughout the night. Has not slept in >24 hours. Objective Appearance: Positive No Apparent Distress and Thin Chest/Lungs: Positive Symmetrical With Equal Breath Sounds and Rhonci (L lower lobe) Heart: Positive RRR and Pulses Normal GI/: Positive Soft, Nontender, Bowel Sounds Normal and No Distention Musculoskeletal: Positive Not Examined Neurological: Positive Sensation Intact, Motor intact, Alert and Oriented Vital Signs Vital Signs: Vital Signs: Last 24 Hours 12/13/23 10:00 12/13/23 10:00 12/13/23 10:00 Temperature 98.6 F Temperature Source Temporal Artery Scan Pulse Rate 90 Respiratory Rate 16 Blood Pressure 116/58 L Blood Pressure Mean 77 Blood Pressure Location Left Arm Blood Pressure Position Supine O2 Sat by Pulse Oximetry 95 Oxygen Delivery Method Nasal Cannula Nasal Cannula Nasal Cannula Oxygen Flow Rate 2 Telemetry Type Telemetry Monitoring Telemetry Heart Rate Telemetry SPO2 EKG MS Interval EKG QRS Interval Telemetry Strip Reading 12/13/23 11:00 12/13/23 12:00 12/13/23 13:00 Temperature Temperature Source Pulse Rate Respiratory Rate Blood Pressure Blood Pressure Mean Blood Pressure Location Blood Pressure Position O2 Sat by Pulse Oximetry Oxygen Delivery Method Nasal Cannula Nasal Cannula Oxygen Flow Rate Telemetry Type Remote Telemetry Telemetry Monitoring Continues Telemetry Heart Rate 112 H Telemetry SPO2 EKG MS Interval 0.15 EKG QRS Interval 0.[address] 12/13/23 13:25 12/13/23 14:00 12/13/23 15:00 Temperature 101 F H 99 F Temperature Source Temporal Artery Scan Oral Pulse Rate 115 H 82 Respiratory Rate 17 16 Blood Pressure 147/68 H Blood Pressure Mean 94 Blood Pressure Location Left Arm Blood Pressure Position Supine O2 Sat by Pulse Oximetry 95 96 95 Oxygen Delivery Method Nasal Cannula Nasal Cannula Nasal Cannula Oxygen Flow Rate 2 2 2 Telemetry Type Telemetry Monitoring Telemetry Heart Rate Telemetry SPO2 EKG MS Interval EKG QRS Interval Telemetry Strip Reading 12/13/23 18:00 12/13/23 19:00 12/13/23 19:20 Temperature 99.5 F Temperature Source Oral Pulse Rate 94 Respiratory Rate 18 Blood Pressure 140/76 Blood Pressure Mean 97 Blood Pressure Location Left Arm Blood Pressure Position O2 Sat by Pulse Oximetry 97 Oxygen Delivery Method Nasal Cannula Nasal Cannula Oxygen Flow Rate 2 2 Telemetry Type Remote Telemetry Telemetry Monitoring Continues Telemetry Heart Rate 99 Telemetry SPO2 98 EKG MS Interval 0.15 EKG QRS Interval 0.04 L Telemetry Strip Reading SR 12/13/23 20:20 12/13/23 21:25 12/14/23 00:48 Temperature 98.5 F Temperature Source Oral Pulse Rate 99 Respiratory Rate 18 Blood Pressure 159/90 H Blood Pressure Mean 113 Blood Pressure Location Left Arm Blood Pressure Position Supine O2 Sat by Pulse Oximetry 100 96 Oxygen Delivery Method Nasal Cannula Nasal Cannula Oxygen Flow Rate 2 2 Telemetry Type Remote Telemetry Telemetry Monitoring Continues Telemetry Heart Rate 96 Telemetry SPO2 97 EKG MS Interval 0.14 EKG QRS Interval 0.06 Telemetry Strip Reading SR 12/14/23 03:15 12/14/23 05:17 12/14/23 05:42 Temperature 99.3 F 100.9 F H Temperature Source Oral Oral Pulse Rate 106 H 104 H Respiratory Rate 20 20 Blood Pressure 145/93 H Blood Pressure Mean 110 Blood Pressure Location Left Arm Blood Pressure Position Supine O2 Sat by Pulse Oximetry 95 95 94 L Oxygen Delivery Method Nasal Cannula Nasal Cannula Nasal Cannula Oxygen Flow Rate 1 1 1 Telemetry Type Telemetry Monitoring Telemetry Heart Rate Telemetry SPO2 EKG MS Interval EKG QRS Interval Telemetry Strip Reading 12/14/23 07:00 Temperature Temperature Source Pulse Rate Respiratory Rate Blood Pressure Blood Pressure Mean Blood Pressure Location Blood Pressure Position O2 Sat by Pulse Oximetry Oxygen Delivery Method Oxygen Flow Rate Telemetry Type Remote Telemetry Telemetry Monitoring Continues Telemetry Heart Rate 92 Telemetry SPO2 96 EKG MS Interval 0.12 EKG QRS Interval 0.06 Telemetry Strip Reading SR Lab Results Lab Results: Lab Results: Last 24 Hours 12/14/23 05:01 WBC 10.85 H RBC 3.35 L Hgb 10.1 L Hct 31.5 L MCV 94.0 MCH 30.1 MCHC 32.1 RDW Coeff of Deborah 13.0 Plt Count 215 Immature Gran % (Auto) 0.6 Neut % (Auto) 76.7 H Lymph % (Auto) 8.4 L [place] % (Auto) 12.5 H Eos % (Auto) 1.4 Baso % (Auto) 0.4 Neut # (Auto) 8.3 H Lymph # (Auto) 0.9 [place] # (Auto) 1.4 Eos # (Auto) 0.2 Baso # (Auto) 0.0 Immature Gran # (Auto) 0.1 Sodium 134.3 L Potassium 3.36 L Chloride 104.0 Carbon Dioxide 24.9 Anion Gap 8.76 BUN 10.8 Creatinine 0.69 Estimated GFR (MDRD) 82.00 BUN/Creatinine Ratio 15.65 Glucose 94.7 Calcium 8.52 Total Bilirubin 0.47 AST 37.4 H ALT 26.1 Alkaline Phosphatase 45.0 L Total Protein 6.34 Albumin 3.29 L Globulin 3.05 Albumin/Globulin Ratio 1.07 Procalcitonin 1.38 H Additional Comments Additional Comments: I have independently reviewed and interpreted the labs/EKGs/imaging ordered during this hospital stay. I have reviewed outside records that are available in our EMR that pertain to medical stay including imaging/notes/labs from previous visits. Active Medications Active Medications: Medications Generic Name Dose Route Start Last Admin Trade Name Freq PRN Reason Stop Dose Admin Acetaminophen 500 mg 12/13/23 04:03 12/14/23 05:02 Acetaminophen 500 Mg Tablet PO 500 mg Q6H PRN Administration FEVER/PAIN Albuterol/Ipratropium 3 ml 12/13/23 10:00 12/14/23 09:24 Ipratropium/Albuterol Vial.Neb NEB 3 ml RTQ4H ALBAN Administration Amitriptyline HCl 25 mg 12/13/23 21:00 12/13/23 20:35 Amitriptyline Hcl 25 Mg Tablet PO 25 mg BEDTIME ALBAN Administration Amlodipine Besylate 5 mg 12/13/23 09:00 12/14/23 08:25 Amlodipine Besylate 5 Mg Tablet PO 5 mg DAILY ALBAN Administration Aspirin 81 mg 12/13/23 07:30 12/14/23 08:25 Aspirin 81 Mg Tab.Chew PO 81 mg DAILYWM2 ALBAN Administration Atorvastatin Calcium 40 mg 12/13/23 17:00 12/13/23 18:01 Atorvastatin Calcium 20 Mg Tablet PO 40 mg QPM ALBAN Administration Benazepril HCl 40 mg 12/13/23 09:00 12/14/23 08:25 Benazepril Hcl 10 Mg Tablet PO 40 mg DAILY ALBAN Administration Levofloxacin/Dextrose 750 mg in 150 mls @ 100 mls/hr 12/13/23 14:30 12/13/23 14:24 Levaquin 750 Mg/150 Ml D5w IV 12/16/23 14:29 100 mls/hr Q48HR ALBAN Administration Omeprazole 40 mg 12/13/23 09:00 12/14/23 05:02 Omeprazole 20 Mg Capsule. PO 40 mg QDAC2 ALBAN Administration Sodium Chloride 1 syr 12/13/23 01:22 0.9% Sodium Chloride 10 Ml Disp.Syrin IVF PRN PRN To flush IV Sodium Chloride 1 syr 12/13/23 21:00 12/14/23 05:06 0.9% Sodium Chloride 10 Ml Disp.Syrin IVF 1 syr Q8HR ALBAN Administration Plan Plan: 1. Acute Hypoxic Respiratory Failure in setting of CAP - Improving, on 1L wean oxygen as tolerated, nebs 2. CAP - Unchanged, still running fever today, switched to levaquin yesterday afternoon, continue nebs, holding steroids per daughter request, sputum, MRSA, legionella, and strep pneumo ordered 3. Acute Metabolic Encephalopathy secondary to CAP - avoid neurologically altering agents, monitor for worsening 4. Acute Transaminitis - liver enzymes and alk phos mildly elevated, likely due to #2, trend and monitor 5. Hypertension - chronic, continue home medications 6. Hyperlipidemia - chronic, continue home medications 7. Weakness due to above - PT/OT to eval and treat DVT Prophylaxis: Ambulation Review Statement Review Statement: I have personally discussed and reviewed the patient's visit/currently labs/imaging/decision making with Dr. Coley, my supervising attending. Greater that 50 minutes spent with patient, 50% of the time spent with this patient was devoted to counseling and coordination of care.
[2023-12-14] MEDS ORDERED: MOTRIN PO PRN (15:32)
[2023-12-15] MEDS: XANAX PO ONE (00:41)
[2023-12-15 05:29] LABS: BASOPHILS % (AUTO) 0.5 % (0.0-3.0); EOSINOPHILS # (AUTO) 0.4 K/ul (0.0-0.7); EOSINOPHILS % (AUTO) 4.2 % (0.0-7.0); HEMATOCRIT 30.2 % (37.0-47.0); HEMOGLOBIN 9.6 g/dl (12.0-16.0); IMMATURE GRANULOCYTE # (AUTO) 0.1 (0.0-1.0); IMMATURE GRANULOCYTE % (AUTO) 0.6 % (0.0-5.0); LYMPHOCYTES # (AUTO) 1.3 K/uL (0.60-3.4); LYMPHOCYTES % (AUTO) 14.2 (10.0-50.0); MEAN CORPUSCULAR HEMOGLOBIN 30.2 pg (27.0-31.0); MEAN CORPUSCULAR HGB CONC 31.8 (31.8-35.4); MONOCYTES % (AUTO) 11.1 (0-10); NEUTROPHILS # (AUTO) 6.1 K/ul (2.0-6.9); NEUTROPHILS % (AUTO) 69.4 % (42.2-75.2); PLATELET COUNT 238 10^3/uL (140-440); RDW COEFFICIENT OF VARIATION 13.3 % (11.6-14.8); RED BLOOD COUNT 3.18 10^6/ul (4.20-5.40)
[2023-12-15 05:43] LABS: ALANINE AMINOTRANSFERASE 28.3 U/L (0-35); ALBUMIN 3.25 g/dL (3.5-5.0); ALKALINE PHOSPHATASE 45.1 U/L (53-141); ASPARTATE AMINO TRANSFERASE 38.2 U/L (14-36); BILIRUBIN,TOTAL 0.38 mg/dL (0.2-1.3); CALCIUM 8.65 mg/dL (8.4-10.2); CARBON DIOXIDE 24.7 mmol/L (22-30.0); CHLORIDE 104.3 mmol/L (98-107); CREATININE 0.82 mg/dL (0.60-1.30); GLUCOSE 85.7 mg/dL (74-106); POTASSIUM 4.17 mmol/L (3.5-5.1); SODIUM 133.1 mmol/L (134.5-145); TOTAL PROTEIN 6.24 g/dL (6.3-8.2)
--- NOTE | 2023-12-15 09:51 | PCM.PROG ---
Date/Time Seen Date Seen by Provider: 12/15/23 Time Seen by Provider: 08:30 Provider [facility] Chief Complaint Chief Complaint: PNEUMONIA Subjective Subjective: Producing sputum now. Down to 0.5L oxygen. Ran fever yesterday afternoon, no fever since. Due for levaquin today. Patient reports feeling better. Objective Appearance: Positive No Apparent Distress Chest/Lungs: Positive Symmetrical With Equal Breath Sounds and Rhonci (LL lobe) Heart: Positive RRR and Pulses Normal GI/: Positive Soft, Nontender, Bowel Sounds Normal and No Distention Musculoskeletal: Positive Not Examined Neurological: Positive Sensation Intact, Motor intact, Alert and Disorinted Vital Signs Vital Signs: Vital Signs: Last 24 Hours 12/14/23 10:00 12/14/23 13:00 12/14/23 14:00 Temperature 98 F 99.8 F Temperature Source Oral Oral Pulse Rate 100 108 H Pulse Rate [Apical] Respiratory Rate 15 17 Blood Pressure 114/56 L 148/69 H Blood Pressure Mean 75 95 Blood Pressure Location Right Arm Left Arm Blood Pressure Position Supine Supine O2 Sat by Pulse Oximetry 97 96 Oxygen Delivery Method Nasal Cannula Nasal Cannula Oxygen Flow Rate 2 2 Telemetry Type Remote Telemetry Telemetry Monitoring Continues Telemetry Heart Rate 109 H Telemetry SPO2 97 EKG SD Interval 0.15 EKG QRS Interval 0.[address] 12/14/23 14:00 12/14/23 15:19 12/14/23 16:21 Temperature 101.1 F H 98.3 F Temperature Source Oral Oral Pulse Rate 127 H 102 H Pulse Rate [Apical] Respiratory Rate 16 16 Blood Pressure Blood Pressure Mean Blood Pressure Location Blood Pressure Position O2 Sat by Pulse Oximetry 96 97 Oxygen Delivery Method Nasal Cannula Nasal Cannula Nasal Cannula Oxygen Flow Rate 2 1 1 Telemetry Type Telemetry Monitoring Telemetry Heart Rate Telemetry SPO2 EKG SD Interval EKG QRS Interval Telemetry Strip Reading 12/14/23 17:22 12/14/23 19:00 12/14/23 19:39 Temperature 98.3 F Temperature Source Oral Pulse Rate 95 Pulse Rate [Apical] 100 Respiratory Rate 16 18 Blood Pressure 124/78 Blood Pressure Mean 93 Blood Pressure Location Left Arm Blood Pressure Position Supine O2 Sat by Pulse Oximetry 96 Oxygen Delivery Method Room Air Nasal Cannula Oxygen Flow Rate 1 Telemetry Type Remote Telemetry Telemetry Monitoring Continues Telemetry Heart Rate 100 Telemetry SPO2 94 EKG SD Interval 0.15 EKG QRS Interval 0.04 L Telemetry Strip Reading SR-ST 12/14/23 20:20 12/14/23 20:56 12/15/23 00:48 Temperature 98.9 F 98.3 F Temperature Source Temporal Artery Scan Oral Pulse Rate 107 H 104 H Pulse Rate [Apical] Respiratory Rate 18 Blood Pressure 142/71 H Blood Pressure Mean 94 Blood Pressure Location Left Arm Blood Pressure Position Supine O2 Sat by Pulse Oximetry 96 95 96 Oxygen Delivery Method Nasal Cannula Nasal Cannula Nasal Cannula Oxygen Flow Rate 1 1 1 Telemetry Type Telemetry Monitoring Telemetry Heart Rate Telemetry SPO2 EKG SD Interval EKG QRS Interval Telemetry Strip Reading 12/15/23 01:00 12/15/23 05:34 12/15/23 05:53 Temperature 98.5 F Temperature Source Oral Pulse Rate 102 H Pulse Rate [Apical] Respiratory Rate 16 Blood Pressure 145/73 H Blood Pressure Mean 97 Blood Pressure Location Left Arm Blood Pressure Position Supine O2 Sat by Pulse Oximetry 90 L 98 Oxygen Delivery Method Nasal Cannula Nasal Cannula Oxygen Flow Rate 1 1 Telemetry Type Remote Telemetry Telemetry Monitoring Continues Telemetry Heart Rate 102 H Telemetry SPO2 94 EKG SD Interval 0.14 EKG QRS Interval 0.[address] 12/15/23 07:00 12/15/23 08:00 12/15/23 09:43 Temperature Temperature Source Pulse Rate Pulse Rate [Apical] 102 H Respiratory Rate 18 Blood Pressure Blood Pressure Mean Blood Pressure Location Blood Pressure Position O2 Sat by Pulse Oximetry 97 Oxygen Delivery Method Nasal Cannula Nasal Cannula Oxygen Flow Rate 1 0.5 Telemetry Type Remote Telemetry Telemetry Monitoring Continues Telemetry Heart Rate 93 Telemetry SPO2 96 EKG SD Interval 0.20 EKG QRS Interval 0.10 Telemetry Strip Reading SR Lab Results Lab Results: Lab Results: Last 24 Hours 12/15/23 05:23 WBC 8.80 RBC 3.18 L Hgb 9.6 L Hct 30.2 L MCV 95.0 MCH 30.2 MCHC 31.8 RDW Coeff of Deborah 13.3 Plt Count 238 Immature Gran % (Auto) 0.6 Neut % (Auto) 69.4 Lymph % (Auto) 14.2 [place] % (Auto) 11.1 H Eos % (Auto) 4.2 Baso % (Auto) 0.5 Neut # (Auto) 6.1 Lymph # (Auto) 1.3 [place] # (Auto) 1.0 Eos # (Auto) 0.4 Baso # (Auto) 0.0 Immature Gran # (Auto) 0.1 Sodium 133.1 L Potassium 4.17 Chloride 104.3 Carbon Dioxide 24.7 Anion Gap 8.27 BUN 11.0 Creatinine 0.82 Estimated GFR (MDRD) 67.00 BUN/Creatinine Ratio 13.41 Glucose 85.7 Calcium 8.65 Total Bilirubin 0.38 AST 38.2 H ALT 28.3 Alkaline Phosphatase 45.1 L Total Protein 6.24 L Albumin 3.25 L Globulin 2.99 Albumin/Globulin Ratio 1.08 Procalcitonin 1.06 H Additional Comments Additional Comments: I have independently reviewed and interpreted the labs/EKGs/imaging ordered during this hospital stay. I have reviewed outside records that are available in our EMR that pertain to medical stay including imaging/notes/labs from previous visits. Active Medications Active Medications: Medications Generic Name Dose Route Start Last Admin Trade Name Freq PRN Reason Stop Dose Admin Acetaminophen 500 mg 12/13/23 04:03 12/14/23 15:21 Acetaminophen 500 Mg Tablet PO 500 mg Q6H PRN Administration FEVER/PAIN Albuterol/Ipratropium 3 ml 12/13/23 10:00 12/15/23 05:48 Ipratropium/Albuterol Vial.Neb NEB 3 ml RTQ4H ALBAN Administration Amitriptyline HCl 25 mg 12/13/23 21:00 12/14/23 20:26 Amitriptyline Hcl 25 Mg Tablet PO 25 mg BEDTIME ALBAN Administration Amlodipine Besylate 5 mg 12/13/23 09:00 12/15/23 08:01 Amlodipine Besylate 5 Mg Tablet PO 5 mg DAILY ALBAN Administration Aspirin 81 mg 12/13/23 07:30 12/15/23 08:02 Aspirin 81 Mg Tab.Chew PO 81 mg DAILYWM2 [place]AN Administration Atorvastatin Calcium 40 mg 12/13/23 17:00 12/14/23 16:34 Atorvastatin Calcium 20 Mg Tablet PO 40 mg QPM ALBAN Administration Benazepril HCl 40 mg 12/13/23 09:00 12/15/23 08:01 Benazepril Hcl 10 Mg Tablet PO 40 mg DAILY ALBAN Administration Levofloxacin/Dextrose 750 mg in 150 mls @ 100 mls/hr 12/13/23 14:30 12/15/23 08:02 Levaquin 750 Mg/150 Ml D5w IV 12/16/23 14:29 100 mls/hr Q48HR ALBAN Administration Ibuprofen 600 mg 12/14/23 15:32 Ibuprofen 600 Mg Tablet PO Q6H PRN Mild Pain Omeprazole 40 mg 12/13/23 09:00 12/15/23 05:36 Omeprazole 20 Mg Capsule. PO Not Given QDAC2 ALBAN Sodium Chloride 1 syr 12/13/23 01:22 0.9% Sodium Chloride 10 Ml Disp.Syrin IVF PRN PRN To flush IV Sodium Chloride 1 syr 12/13/23 21:00 12/15/23 05:35 0.9% Sodium Chloride 10 Ml Disp.Syrin IVF 1 syr Q8HR ALBAN Administration Plan Plan: 1. Acute Hypoxic Respiratory Failure in setting of CAP - Improving, on 0.5L wean oxygen as tolerated, nebs 2. CAP - Unchanged, still running fever, switched to levaquin - Q48H due to renal function, continue nebs, holding steroids per daughter request, sputum, MRSA, legionella, and strep pneumo ordered 3. Acute Metabolic Encephalopathy secondary to CAP/Dementia - avoid neurologically altering agents, monitor for worsening 4. Acute Transaminitis - liver enzymes mildly elevated, likely due to #2, trend and monitor 5. Hypertension - chronic, continue home medications 6. Hyperlipidemia - chronic, continue home medications 7. Weakness due to above - PT/OT to eval and treat DVT Prophylaxis: Ambulation Review Statement Review Statement: I have personally discussed and reviewed the patient's visit/currently labs/imaging/decision making with Dr. Coley, my supervising attending. Greater that 50 minutes spent with patient, 50% of the time spent with this patient was devoted to counseling and coordination of care.
[2023-12-15] MEDS: ULTRAM PO PRN (14:12)
[2023-12-15 14:13] LABS: SPECIMEN SOURCE Urine (.); STEP PNEUMO ORGANISM ID Not indicated. (.); STREP PNEUMO AG Negative (Negative); STREP PNEUMO BODY FLUID CULT Not indicated. (.)
[2023-12-15] MEDS ORDERED: XANAX PO PRN (18:12)
[2023-12-15] MEDS: PREDNISONE PO SCH (18:29)
[2023-12-15] MEDS: SEROQUEL PO SCH (21:19)
[2023-12-16 05:14] VITALS: BP 121/56; RESP 16; TEMP 97.4
[2023-12-16 05:24] LABS: BASOPHILS % (AUTO) 0.3 % (0.0-3.0); EOSINOPHILS % (AUTO) 0.3 % (0.0-7.0); HEMATOCRIT 27.8 % (37.0-47.0); HEMOGLOBIN 8.6 g/dl (12.0-16.0); IMMATURE GRANULOCYTE # (AUTO) 0.1 (0.0-1.0); IMMATURE GRANULOCYTE % (AUTO) 0.7 % (0.0-5.0); LYMPHOCYTES # (AUTO) 0.7 K/uL (0.60-3.4); LYMPHOCYTES % (AUTO) 9.7 (10.0-50.0); MEAN CORPUSCULAR HEMOGLOBIN 29.6 pg (27.0-31.0); MEAN CORPUSCULAR HGB CONC 30.9 (31.8-35.4); MEAN CORPUSCULAR VOLUME 95.5 fl (81.0-99.0); MONOCYTES # (AUTO) 0.8 K/uL (0.4-2.0); MONOCYTES % (AUTO) 10.3 (0-10); NEUTROPHILS # (AUTO) 5.9 K/ul (2.0-6.9); NEUTROPHILS % (AUTO) 78.7 % (42.2-75.2); PLATELET COUNT 271 10^3/uL (140-440); RDW COEFFICIENT OF VARIATION 13.4 % (11.6-14.8); RED BLOOD COUNT 2.91 10^6/ul (4.20-5.40); WHITE BLOOD COUNT 7.44 K/ul (4.6-10.2)
[2023-12-16 05:36] LABS: ALANINE AMINOTRANSFERASE 36.7 U/L (0-35); ALBUMIN 3.19 g/dL (3.5-5.0); ALKALINE PHOSPHATASE 42.4 U/L (53-141); ASPARTATE AMINO TRANSFERASE 62.8 U/L (14-36); BILIRUBIN,TOTAL 0.25 mg/dL (0.2-1.3); BLOOD UREA NITROGEN 18.4 mg/dL (7-17); CALCIUM 8.93 mg/dL (8.4-10.2); CARBON DIOXIDE 25.8 mmol/L (22-30.0); CHLORIDE 102.2 mmol/L (98-107); CREATININE 0.94 mg/dL (0.60-1.30); GLUCOSE 157.8 mg/dL (74-106); POTASSIUM 4.1 mmol/L (3.5-5.1); SODIUM 133.8 mmol/L (134.5-145); TOTAL PROTEIN 6.14 g/dL (6.3-8.2)
[2023-12-16 08:37] LABS: IRON 20.2 ug/dL (37-170)
--- NOTE | 2023-12-16 08:41 | DCSUM ---
Admission Date Admission Date: 12/13/23 Discharge Date Discharge Date: 12/16/23 Admission Diagnosis Admission Diagnosis: 1. Acute Hypoxic Respiratory Failure in setting of CAP 2. CAP 3. Acute Metabolic Encephalopathy secondary to CAP 4. Acute Transaminitis 5. Hypertension 6. Hyperlipidemia 7. Weakness due to above Discharge Diagnosis Discharge Diagnosis: 1. Acute Hypoxic Respiratory Failure in setting of CAP - Resolved 2. CAP - Improving 3. Acute Metabolic Encephalopathy secondary to CAP/Dementia - Improving 4. Acute Transaminitis - Improving 5. Hypertension - Chronic, stable 6. Hyperlipidemia - Chronic, stable 7. Weakness due to above - Continue PT/OT 8. Anemia - Chronic, follows with Dr. Erwin [facility] Provider Hospital Provider: ELIZABETH KAISER, [facility] Primary Care Physician Primary Care Physician: KASH NARANJO Summary of History and Physical Summary of History and Physical: 83 yo female with pmh of HTN, hyperlipidemia, anemia, CKD3, and RA presented to the ER with altered mental status and fever. Patient is disoriented to place, time, and situation currently. Daughter at bedside to provide HPI. Reports patient began not feeling well on Monday and was taken to [facility]. She was found to have L lower lobe pneumonia and admitted from the to the . She was discharged around 11 yesterday and then continued to decline as they got home. Became very short of breath on exertion, fever over 100, and became confused. White count at [facility] was initially 22 and decreased to 12 by discharge. She was requiring 2L NC oxygen and was weaned to RA. Blood cultures completed and negative. Strep pneumo, legionella, and sputum were ordered but not collected during stay. She received azithromycin and rocephin then discharged home on cefdinir in which she only took 1 dose prior to returning to the ER. Initial temp in ER was 101.7, O2 sat was dropping down into upper 80s and was placed on 2L. Pneumonia still present on x-ray to [facility]. White count 11.5. Blood cultures were collected. Given doses of azith and rocephin. Patient continues to be confused. Daughter reports agitation at times as well. Admit to med/surg inpatient due to failure at home. Hospital Course Subjective: After 24 hours of treatment with azith and rocephin for pneumonia, patient fever persisted. Antibiotics were changes to levaquin. Checked MRSA, strep pneumo, legionella, and sputum culture. Legionella and sputum culture negative. MRSA and strep pneumo still pending. Has not had fever >24 at this time. Required 2L of oxygen until yesterday, she was able to be weaned to 0.5. Was on RA throughout most of the night and remained 99%. Currently 97% on RA. Lungs sound clear this am. WBC count trended down during stay as well as procalcitonin. Patient did have episodes of agitation, especially at night time. Daughter voiced concerns for early dementia potentially. Agreed, and discussed also likely due to acute illness. Started on seroquel last night for sleep and no agitation occurred and had restful sleep. Hemoglobin trended down and is 8.6 this am. Patient has hx of chronic anemia and follows with Dr. Erwin. No s/sx of active bleeding. Iron studies checked and low. Rx sent for supplementation. No changes to previous home medication regimen. Appearance: Pleasant, No Apparent Distress and Alert HEENT: MMM and Supple CVS: No Murmur and No Rubs Abdomen: Soft and Non-Tender Respiratory: No Dyspnea Extremities: No Edema Vital Signs: Most Recent Vital Signs Temperature 97.4 F L 12/16/23 05:12 Temperature Source Oral 12/16/23 05:12 Temperature Source Temporal Artery Scan 12/13/23 03:55 Pulse Rate 98 12/16/23 05:12 Respiratory Rate 16 12/16/23 05:12 Blood Pressure 121/56 L 12/16/23 05:12 Blood Pressure Mean 77 12/16/23 05:12 Blood Pressure Left Arm 139/74 12/13/23 04:17 Blood Pressure Location Left Arm 12/16/23 05:12 Blood Pressure Position Supine 12/16/23 05:12 O2 Sat by Pulse Oximetry 99 12/16/23 05:42 Oxygen Delivery Method Nasal Cannula 12/16/23 05:42 Oxygen Flow Rate 1 12/16/23 05:42 Height 4 ft 11 in 12/13/23 04:17 Weight 34.4 kg 12/13/23 04:17 Telemetry Type Remote Telemetry 12/16/23 06:56 Telemetry Monitoring Continues 12/16/23 06:56 Telemetry Heart Rate 92 12/16/23 06:56 Telemetry SPO2 100 12/16/23 06:56 EKG ND Interval 0.15 12/16/23 06:56 EKG QRS Interval 0.08 12/16/23 06:56 Telemetry Strip Reading NSR 12/16/23 06:56 Imaging: Procedure(s): CHEST, 1V AP ONLY FINDINGS: The bones are unremarkable. The cardiac silhouette is enlarged. The pulmonary vasculature is within normal limits. The right costophrenic angle is clear. There is a small left pleural effusion. There are left lower lobe airspace opacities, consistent with pneumonia. There are calcified granulomas. Impression: Left lower lobe pneumonia. Small left pleural effusion. Cardiomegaly. Lab Results Last 24 Hours: 12/16/23 12/13/23 05:18 12:44 WBC 7.44 RBC 2.91 L Hgb 8.6 L Hct 27.8 L MCV 95.5 MCH 29.6 MCHC 30.9 L RDW Coeff of Deborah 13.4 Plt Count 271 Immature Gran % (Auto) 0.7 Neut % (Auto) 78.7 H Lymph % (Auto) 9.7 L Tucker % (Auto) 10.3 H Eos % (Auto) 0.3 Baso % (Auto) 0.3 Neut # (Auto) 5.9 Lymph # (Auto) 0.7 Tucker # (Auto) 0.8 Eos # (Auto) 0.0 Baso # (Auto) 0.0 Immature Gran # (Auto) 0.1 Sodium 133.8 L Potassium 4.10 Chloride 102.2 Carbon Dioxide 25.8 Anion Gap 9.90 BUN 18.4 H Creatinine 0.94 Estimated GFR (MDRD) 57.00 BUN/Creatinine Ratio 19.57 Glucose 157.8 H D Calcium 8.93 Total Bilirubin 0.25 AST 62.8 H ALT 36.7 H Alkaline Phosphatase 42.4 L Total Protein 6.14 L Albumin 3.19 L Globulin 2.95 Albumin/Globulin Ratio 1.08 CSF Strep pneumoniae Ag Not indicated. Urine Legionella Ag Negative Staphs Organism ID Not indicated. S. pneumoniae Ag Source Urine S. pneumoniae Ag Intrp Negative Ref Test Please Note Comment Discharge Instructions Discharge Planning: Discharge Planning > 40 minutes If patient is discharged with left ventricular systolic dysfunction: NA Discharged with a beta toshia? [] If no, why not? [] Discharged with an josh/arb? [] If no, why not? [] Diagnosis: Community Acquired Pneumonia Diet: Regular Activity: as tolerated, continue home health PT/OT Follow-up with PCP next week. Medications: Levaquin 750 mg every 48 hours x 3 more doses (antibiotic for pneumonia) Seroquel 25 mg at bedtime (for sleep) Xanax 0.25 daily as needed (for agitation) Ferrous sulfate 324 mg twice a day (iron replacement) Discharge Medications: Medications at Discharge (Home Meds & RX) aspirin 81 mg chewable tablet 81 mg PO DAILYWM 04/07/18 cefdinir 300 mg capsule 300 mg PO Q12HR 04/07/18 prednisone 1 mg tablet 3 mg PO DAILY 04/07/18 amitriptyline 25 mg tablet 25 mg PO BEDTIME 12/13/23 amlodipine 5 mg-benazepril 40 mg capsule 1 cap PO DAILY 12/13/23 atorvastatin 40 mg tablet 40 mg PO QPM 12/13/23 certolizumab pegol 400 mg/2 mL (200 mg/mL x2) subcutaneous syringe kit (Cimzia) 400 mg subcut ONCE 12/13/23 hydrochlorothiazide 12.5 mg tablet 12.5 mg PO DAILY 12/13/23 nebivolol 5 mg tablet (Bystolic) 5 mg PO DAILY 12/13/23 prednisone 1 mg tablet 2 mg PO BEDTIME 12/13/23 tramadol 50 mg tablet 50 mg PO Q6H PRN pain 12/13/23 Discharge Plan Discharge Discharge Orders: Discharge Patient (ONCE); Ordered 12/16/23 Ordered By: TORREY MULLEN Activity Restrictions/Additional Instructions: Diagnosis: Community Acquired Pneumonia Diet: Regular Activity: as tolerated, continue home health PT/OT Follow-up with PCP next week. Medications: Levaquin 750 mg every 48 hours x 3 more doses (antibiotic for pneumonia) Seroquel 25 mg at bedtime (for sleep) Xanax 0.25 daily as needed (for agitation) Ferrous sulfate 325 mg twice a day (iron replacement) - this may make stools dark and sticky, take with vitamin C Instructions: Community Acquired Pneumonia (GEN) Patient Disposition: HOME WITH FAMILY CARE Prescriptions: New quetiapine 25 mg Tablet 25 mg PO BEDTIME Qty: 30 0RF alprazolam 0.25 mg Tablet 0.25 mg PO ONCE PRN (Reason: anxiety) Qty: 20 0RF levofloxacin 750 mg tablet 750 mg PO Q48HR 3 Days Qty: 3 0RF ferrous sulfate 325 mg (65 mg iron) tablet 325 mg PO BID Qty: 60 0RF Continued prednisone 1 MG tablet 3 mg PO DAILY aspirin 81 MG tablet,chewable 81 mg PO DAILYWM cefdinir 300 MG capsule 300 mg PO Q12HR amitriptyline 25 mg tablet 25 mg PO BEDTIME amlodipine-benazepril 5-40 mg capsule 1 cap PO DAILY atorvastatin 40 mg tablet 40 mg PO QPM Cimzia 400 mg/2 mL (200 mg/mL x 2) syringe kit 400 mg subcut ONCE Rx Instructions: administer as 2 equally divided doses at 2 different sites in abdomen or thigh hydrochlorothiazide 12.5 mg tablet 12.5 mg PO DAILY nebivolol [Bystolic] 5 mg tablet 5 mg PO DAILY tramadol 50 mg tablet 50 mg PO Q6H PRN (Reason: pain) prednisone 1 mg tablet 2 mg PO BEDTIME Did you review [place] [employer] for ALL controlled substances?: No Discussed opioids are addictive and Narcan is available by prescription or from pharmacy.: No Condition: Fair
[2023-12-16] MEDS: HYDROCHLOROTHIAZIDE PO SCH (08:56)
[2023-12-16] MEDS: FERROUS SULFATE PO ONE (09:21)
[2023-12-16 09:48] VITALS: PULSE 85
== END 2023-12-16 11:30 | disposition home or self-care (01) | DRG 193 ==
LOC: MEDSURG B 00:59 → ED 00:59 → MEDSURG B 04:09 → SCU 12-14 12:01
PROVIDERS: ADMIT Hospitalist; ATTEND Nurse Practitioner Family